=== PATIENT | male | born 1950 | race Caucasian/White ===

== ENCOUNTER → 2017-02-10 | Outpatient (CLI) | payer MEDICARE, BC | LOC: MW.CHPM 08:00 | PROVIDERS: ATTEND Anesthesiology | DX: M96.1 Postlaminectomy syndrome, not elsewhere classified (principal); M54.2 Cervicalgia; G89.4 Chronic pain syndrome | CPT/HCPCS: G0463 ==

== ENCOUNTER → 2017-03-04 | Outpatient (CLI) | payer MEDICARE, BC ==
[2017-03-04 10:12] LABS: CHLORIDE,CL 108 mmol/L (98-110); SODIUM,NA 141 mmol/L (136-146)
== END ==
LOC: MW.CHFP 09:24
PROVIDERS: ATTEND Student in an Organized Health Care Education/Training Program
DX: Z12.5 Encounter for screening for malignant neoplasm of prostate (principal); E78.5 Hyperlipidemia, unspecified; N52.9 Male erectile dysfunction, unspecified; R53.82 Chronic fatigue, unspecified; R07.9 Chest pain, unspecified; R06.02 Shortness of breath
CPT/HCPCS: 36415; 80053; 80061; 84402; 84403; 99214; G0103

== ENCOUNTER 2019-02-11 11:29 | Emergency (ER) | payer MEDICARE, BC ==
[2019-02-11 11:49] VITALS: BP 134/83
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
[2019-02-11] MEDS ORDERED: Acetaminophen 500 MG Tab PO ONE (13:08)
--- NOTE | 2019-02-11 13:12 | CR ---
Indication trauma Three-view lumbar spine. Findings: Normal height and alignment of lumbar vertebral bodies. Mild degenerative change of lumbar spine. No acute fractures. Bilateral hip arthroplasties. SI joints appear unremarkable. IMPRESSION: 1. No acute fracture or spondylolisthesis or spondylolysis. Moderate diffuse degenerative change. Dictated by Emily Nina MD @ Feb 11 2019 1:06PM Signed by Dr. Emily Nina @ Feb 11 2019 1:10PM
--- NOTE | 2019-02-11 13:20 | CR ---
Trauma 3 views of the left ankle. Findings: Diffuse soft tissue swelling. Normal alignment. Presence of an ankle effusion. There is linear lucency involving the lateral talar process. There is no cortical break. IMPRESSION: Linear lucency seen along the lateral talar process without cortical break. Recommend correlation to site of pain. Findings could reflect a very subtle fracture. Further imaging with CT scan could be performed. Dictated by Emily Nina MD @ Feb 11 2019 1:10PM Signed by Dr. Emily Nina @ Feb 11 2019 1:19PM
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
== END 2019-02-11 14:05 | disposition home or self-care (01) ==
LOC: MW.ED 11:29
DX: S62.396A Other fracture of fifth metacarpal bone, right hand, initial encounter for closed fracture (principal); S99.912A Unspecified injury of left ankle, initial encounter; Z79.899 Other long term (current) drug therapy; M54.5 Low back pain; Z79.82 Long term (current) use of aspirin; Z88.5 Allergy status to narcotic agent; V95.1 Ultralight, microlight or powered-glider accident injuring occupant
CPT/HCPCS: 29125; 71045; 72100; 72170; 73130; 73610; 99283; A9270; 99284

== ENCOUNTER 2019-02-16 11:07 | Day surgery (SDC) | payer MEDICARE, BC ==
[~2019-02-16 11:07] MED LIST: Bupivacaine 0.25%/EPINEPHrine 1:200,000 10 ML SDV INJECT ONE; Bupivacaine 0.25%/EPINEPHrine 1:200,000 10 ML SDV ONE; Lactated Ringers 1,000 ML IV SCH; Lidocaine 2% 5 ML SDV ONE; Midazolam 1 MG/ML 2 ML SDV ONE; Propofol 200 MG/20 ML SDV ONE; Sodium Chloride 0.9% 10 ML SDV IV PRN; Sodium Chloride 0.9% 10 ML Syringe FLUSH PRN; Sodium Chloride 0.9% 2.5 ML Syringe FLUSH PRN; ceFAZolin 2 GM in Premix Bag 1 BAG IV ONE; fentaNYL 100 MCG/2 ML SDV ONE
[2019-02-16] MEDS ORDERED: Propofol 200 MG/20 ML SDV ONE ×2 (11:09→13:01)
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
[2019-02-16] MEDS ORDERED: Sodium Chloride 0.9% 20 ML ONE (12:28)
[2019-02-16] MEDS ORDERED: ceFAZolin 1 GM Vial ONE (12:28)
[2019-02-16] MEDS ORDERED: Famotidine 20 MG/2 ML SDV ONE (12:37)
[2019-02-16] MEDS ORDERED: Dexamethasone 4 MG/ML 5 ML MDV ONE (13:13)
[2019-02-16] MEDS ORDERED: Ondansetron 4 MG/2 ML SDV ONE (13:13)
[2019-02-16] MEDS ORDERED: 50% Dextrose in Water 50 ML Syringe IVPUSH PRN (13:38)
[2019-02-16] MEDS ORDERED: EPINEPHrine 1 MG/1 ML Amp IVPUSH PRN (13:38)
[2019-02-16] MEDS ORDERED: fentaNYL 100 MCG/2 ML SDV IVPUSH PRN (13:38)
[2019-02-16] MEDS ORDERED: Atropine 1 MG/ML SDV IVPUSH PRN ×2 (13:38)
[2019-02-16] MEDS ORDERED: Naloxone 0.4 MG/ML Syringe IVPUSH PRN (13:38)
[2019-02-16] MEDS ORDERED: Ketorolac 30 MG/ML SDV IVPUSH PRN (13:38)
[2019-02-16] MEDS ORDERED: Albuterol 0.083% 2.5 MG/3 ML Neb Soln NEB PRN (13:38)
--- NOTE | 2019-02-16 14:18 | PCM.POSTAN ---
POST ANESTHESIA ASSESSMENT - MENTAL STATUS Mental Status: Alert, Oriented - RESPIRATORY Respiratory Status: Respiratory Rate WNL, Airway Patent, O2 Saturation Stable - CARDIOVASCULAR CV Status: Pulse Rate WNL, Blood Pressure Stable - GASTROINTESTINAL GI Status: No Symptoms - POST OP HYDRATION Hydration Status: Adequate & Stable - OBSERVATIONS Free Text/Narrative:: The patient tolerated the procedure well. There were no apparent anesthetic complications at this time.
[2019-02-16 14:28] VITALS: BP 181/84
--- NOTE | 2019-02-16 14:45 | PCM48HPAN ---
Post Anesthesia Note - EVALUATION WITHIN 48HRS OF ANESTHETIC Vital Signs in Normal Range: Yes Patient Participated in Evaluation: Yes Respiratory Function Stable: Yes Airway Patent: Yes Cardiovascular Function Stable: Yes Hydration Status Stable: Yes Pain Control Satisfactory: Yes Nausea and Vomiting Control Satisfactory: Yes Mental Status Recovered: Yes Resp Rate: 16
[2019-02-16] MEDS ORDERED: traMADol 50 MG Tab PO ONE (14:55)
--- NOTE | 2019-02-16 16:24 | PCM.OPNOTE ---
- General Post-Op/Procedure Note Date of Surgery/Procedure: 02/16/19 Operative Procedure(s): closed reduction pin fixation of the left 5th metacarpal Pre Op Diagnosis: left 5th metacarpal fracture Post-Op Diagnosis: Same Anesthesia Technique: Local, MAC Primary Surgeon: Christy Nunez Pacu Rn: Gianna Leung Complications: None Condition: Good Free Text/Narrative:: Intake & Output 02/16/19 02/16/19 02/16/19 07:59 15:59 23:59 Intake Total 1200 Balance 1200
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
== END 2019-02-16 15:23 | disposition home or self-care (01) ==
LOC: MW.SDS 11:07
PROVIDERS: ATTEND Plastic Surgery
DX: S62.337A Displaced fracture of neck of fifth metacarpal bone, left hand, initial encounter for closed fracture (principal); E78.00 Pure hypercholesterolemia, unspecified; M75.41 Impingement syndrome of right shoulder; M75.42 Impingement syndrome of left shoulder; V95 Accident to powered aircraft causing injury to occupant; Z88.5 Allergy status to narcotic agent; Z86.73 Personal history of transient ischemic attack (TIA), and cerebral infarction without residual deficits; Z79.82 Long term (current) use of aspirin; Z79.899 Other long term (current) drug therapy
CPT/HCPCS: 26608; A9270; J0131; J0690; J1100; J1885; J2001; J2250; J2405; J2704; J3010; J3490; J7120

== ENCOUNTER 2020-10-03 10:40 | Day surgery (SDC) | payer MEDICARE, BC ==
[2020-10-03] MEDS ORDERED: Iopamidol 200-M 10 ML vial ITHECAL ONE (11:30)
[2020-10-03] MEDS ORDERED: Ropivacaine 0.5% 5 MG/ML 30 ML SDV INJECT ONE (11:30)
[2020-10-03] MEDS ORDERED: Betamethasone Acetate/Betamethasone Sod Phosphate 30 MG/5 ML MDV EPIDUR ONE (11:30)
[2020-10-03] MEDS ORDERED: Lidocaine 2% 5 ML SDV INJECT ONE (11:30)
--- NOTE | 2020-10-03 15:08 | OR ---
SURGEON: Salma Lopez D.O. DATE OF PROCEDURE: 10/03/2020 ASSISTANTS: OR staff present: 1. Columba Du RN. 2. Angeles Taylor RN. 3. Dmoingo Allen RT. WOUND CLASS: I. PREOPERATIVE DIAGNOSES: 1. Failed back surgery syndrome. 2. L5-S1 radiculopathy, right lower extremity. 3. L5-S1 herniated disk. 4. Chronic low back pain with right lower extremity radiculopathy. POSTOPERATIVE DIAGNOSES: 1. Failed back surgery syndrome. 2. L5-S1 radiculopathy, right lower extremity. 3. L5-S1 herniated disk. 4. Chronic low back pain with right lower extremity radiculopathy. PROCEDURES PERFORMED: 1. Right S1 transforaminal epidural. 2. Fluoroscopic guidance for needle placement. 3. Local with oral Valium for sedation. SCREENING QUESTIONS: The patient answered "no" to all of the following questions: 1. Are you allergic to iodine, Betadine or latex? 2. Do you have a bleeding disorder? 3. Do you have any joint replacements, heart valve replacements, or a pacemaker? 4. Are you allergic to anti-inflammatories or blood thinners? 5. Do you have any current local or systemic infections? DESCRIPTION OF PROCEDURE: The patient had the procedure thoroughly explained including risks, benefits and alternatives. Consent was signed in my clinic indicating understanding and willingness to proceed. The patient presented to [facility] [place] where the patient was escorted to the dressing room to disrobe and change into a hospital gown. Preoperative vital signs were taken and stable. The patient reported that Valium was taken prior to the procedure. The patient was brought to the procedure room and placed in the prone position on the table. A pillow was placed under the abdomen in order to flatten the lumbar lordosis. The back was prepped with ChloraPrep and sterilely draped. All personnel in the operating room were dressed in appropriate attire including surgical scrubs, head and shoe covers. This was to ensure sterility while in the treatment room. During the time fluoroscopy was in use, all personnel in the operating room wore lead navarro with thyroid collars. Sterile technique was used during the procedure. The fluoroscope was placed for the right S1 transforaminal epidural steroid injection. There was no sign of infection at the skin site for needle insertion. The skin was anesthetized with 2% lidocaine with a 27 gauge 1-1/2 inch needle. Then, a 22 gauge 3-1/2 inch spinal needle, advanced to the right S1 foramen. Under direct fluoroscopic guidance needle position was verified in three views; AP, oblique and lateral, with 0.2 cubic centimeters increments of Isovue- 200 dye. No intravascular flow pattern was observed under live fluoroscopy. Then 12 milligrams of Celestone and local was slowly injected after negative aspiration of heme, cerebrospinal fluid and no paresthesias were noted. The needle was cleared prior to removal from the skin. No adverse reactions were noted. The patient was brought to the recovery room awake and in good condition by my staff. The patient was monitored and discharge instructions were given after a brief stay in the recovery area. Both oral and written discharge and follow up instructions were given. The patient will follow up in the clinic in 3-4 weeks post procedure to evaluate the efficacy. The patient verbalized understanding including understanding of those signs and symptoms that would require emergency care and knows how to contact the office if there are any problems or questions in the meantime. PREOPERATIVE PAIN: 8/10. POSTOPERATIVE PAIN: 4/10. FOLLOWUP: In the Pain Clinic in 1 month. JAMES / ALEXANDRA /[id number]
== END 2020-10-03 12:34 ==
LOC: MW.SDS 10:40
PROVIDERS: ATTEND Anesthesiology
DX: G89.29 Other chronic pain (principal); M51.17 Intervertebral disc disorders with radiculopathy, lumbosacral region; M96.1 Postlaminectomy syndrome, not elsewhere classified; M48.061 Spinal stenosis, lumbar region without neurogenic claudication; M47.26 Other spondylosis with radiculopathy, lumbar region; M51.16 Intervertebral disc disorders with radiculopathy, lumbar region; F41.9 Anxiety disorder, unspecified; K21.9 Gastro-esophageal reflux disease without esophagitis; Z88.5 Allergy status to narcotic agent; Z79.82 Long term (current) use of aspirin; Z79.899 Other long term (current) drug therapy

== ENCOUNTER 2023-07-06 07:45 | Emergency (ER) | payer MEDICARE, BC ==
[2023-07-06] MEDS ORDERED: Sodium Chloride 0.9% 1,000 ML IV STA (07:56)
[2023-07-06] MEDS ORDERED: Magnesium Sulfate/Water 50 ML ONE (07:57)
[2023-07-06] MEDS ORDERED: Adenosine 6 MG/2 ML SDV IVPUSH ONE (08:00)
[2023-07-06] MEDS ORDERED: Sodium Chloride 0.9% 2.5 ML Syringe FLUSH PRN (08:03)
[2023-07-06] MEDS ORDERED: Sodium Chloride 0.9% 10 ML Syringe FLUSH PRN (08:03)
[2023-07-06] MEDS ORDERED: Magnesium Sulfate/Water 2 GM in Premix Bag 1 BAG IV ONE (08:11)
[2023-07-06] MEDS ORDERED: Metoprolol Tartrate 25 MG Tab PO ONE (08:30)
[2023-07-06 08:51] LABS: BASOPHILS PERCENT AUTO 0.3 % (0.0-1.5); EOSINOPHILS ABSOLUTE AUTO 0.1 K/uL (0.0-0.7); EOSINOPHILS PERCENT AUTO 0.6 % (0.0-7.0); HEMATOCRIT 45.6 % (38.0-50.0); LYMPHOCYTES PERCENT AUTO 21.1 % (16.0-40.0); MEAN CORPUSCULAR HEMOGLOBIN 30.2 pg (27.0-32.0); MEAN CORPUSCULAR HGB CONC 32.9 g/dL (31.0-37.0); MEAN CORPUSCULAR VOLUME 91.8 fL (80.0-98.0); MONOCYTES ABSOLUTE AUTO 0.7 K/uL (0.0-0.8); MONOCYTES PERCENT AUTO 7.7 % (0.0-15.0); NEUTROPHILS ABSOLUTE AUTO 6.5 K/uL (1.4-5.7); NEUTROPHILS PERCENT AUTO 70.3 % (48.0-80.0); NRBC ABSOLUTE 0 K/uL; PLATELET COUNT,PLT 277 K/uL (150-400); RED BLOOD CELL COUNT 4.97 M/uL (4.50-5.90)
[2023-07-06 08:51] LABS: D-DIMER QUANTITATIVE 0.73 mg/L FEU (0.00-0.50); INR 0.96 (0.86-1.11); PTT,PARTIAL THROMBOPLSTIN TIME 24.7 SEC (23.9-30.7)
[2023-07-06 09:17] LABS: A/G RATIO 1.2 (0.9-1.6); ALANINE AMINOTRANSFERASE,ALT 93 IU/L (14-63); ALBUMIN 3.5 g/dL (3.4-5.0); ALKALINE PHOSPHATASE 75 U/L (46-116); ASPARTATE AMNIOTRANSFERASE,AST 45 IU/L (15-37); BILIRUBIN TOTAL 0.4 mg/dL (0.2-1.0); BLOOD UREA NITROGEN,BUN 15 mg/dL (7.0-18.0); CALCIUM 8.6 mg/dL (8.5-10.1); CARBON DIOXIDE,CO2 23.3 mmol/L (21.0-32.0); CHLORIDE,CL 109 mmol/L (98-107); CREATININE 1.2 mg/dL (0.8-1.3); EST CRCL DRUG DOSING (CG) 61.03 mL/min; ESTIMATED GFR 63 mL/min (>60); ETHANOL BLOOD MEDICAL <3 mg/dL; GLUCOSE RANDOM 99 mg/dL (74-106); LIPASE 69 U/L (16-77); MAGNESIUM 2.3 mg/dL (1.8-2.4); PHOSPHORUS 1.7 mg/dL (2.6-4.7); POTASSIUM,K 4.5 mmol/L (3.5-5.1); PROTEIN TOTAL,TP 6.4 g/dL (6.4-8.2); SODIUM,NA 144 mmol/L (136-148)
[2023-07-06 09:27] LABS: TSH ULTRASENSITIVE 4.85 uIU/mL (0.36-3.74)
[2023-07-06 10:06] LABS: T4 FREE 1.03 ng/dL (0.76-1.46)
[2023-07-06] MEDS ORDERED: Simethicone 80 MG Tab.Chew PO ONE (11:04)
[2023-07-06] MEDS ORDERED: Ketorolac 30 MG/ML SDV IVPUSH ONE (11:04)
[2023-07-06] MEDS ORDERED: Dicyclomine 10 MG Cap PO ONE (11:05)
[2023-07-06 12:49] VITALS: BP 148/60; PULSE 60
== END 2023-07-06 12:50 | disposition home or self-care (01) ==
LOC: MW.ED 07:45
DX: I47.1 Supraventricular tachycardia (principal); E78.00 Pure hypercholesterolemia, unspecified; K21.9 Gastro-esophageal reflux disease without esophagitis; Z88.5 Allergy status to narcotic agent; Z79.82 Long term (current) use of aspirin; Z79.899 Other long term (current) drug therapy; Z86.73 Personal history of transient ischemic attack (TIA), and cerebral infarction without residual deficits
CPT/HCPCS: 36415; 71045; 71275; 74174; 80053; 80307; 83690; 83735; 83880; 84100; 84439; 84443; 84484; 85025; 85379; 85610; 85730; 93005; 96365; 96375; 99291; A9270; J0153; J3475; J3490; J7030; 93010